=== PATIENT | male | born 1950 | race Caucasian/White ===

== ENCOUNTER 2017-04-28 10:37 | Emergency (ER) | payer OTHER ==
[~2017-04-28] VITALS: Ht 180.3 cm; Wt 129.5 kg
[~2017-04-28 10:37] MED LIST: LOSARTAN-HCTZ1 EACH PO
[2017-04-28 13:02] LABS: HEMATOCRIT 36.9 % (38.0-50.0); MCHC 33.6 G/DL (30.0-36.0); MCV 92.3 FL (86-99); PLATELET COUNT 178 K/uL (156-360); RBC DIS.WIDTH-CV 13.2 % (11.8-14.6); RBC DIS.WIDTH-SD 45.1 % (39-53); WHITE BLOOD COUNT 6.8 K/uL (4.1-10.2)
[2017-04-28 13:04] LABS: HEMOGLOBIN 12.4 G/DL (12.5-16.6)
[2017-04-28 13:08] LABS: CHLORIDE 100 mEq/L (99-109); POTASSIUM 4.3 mEq/L (3.7-5.4); SODIUM 135 mEq/L (136-147)
[2017-04-28 13:09] LABS: GLUCOSE 98 mg/dL (70-99)
[2017-04-28 13:13] LABS: CREATININE 1.5 mg/dL (0.6-1.3); GFR ESTIMATE (CALCULATED) 50 mL/min/ (58.99-99999)
[2017-04-28 13:14] LABS: UREA NITROGEN (BUN) 45 mg/dL (9-23)
[2017-04-28] MEDS ORDERED: ZOFRAN4 MG PO (14:02)
[2017-04-28 15:43] VITALS: BP 109/71
== END 2017-04-28 15:45 | disposition home or self-care (01) ==
LOC: EME 10:37
PROVIDERS: Emergency Medicine
DX: M25.561 Pain in right knee (principal); R11.2 Nausea with vomiting, unspecified; N28.9 Disorder of kidney and ureter, unspecified; E86.0 Dehydration; I10 Essential (primary) hypertension; Z98.890 Other specified postprocedural states; Z96.652 Presence of left artificial knee joint; Z79.01 Long term (current) use of anticoagulants
CPT/HCPCS: 80048; 83605; 85027; 87040; 93971; 99281; 99285; J2405; J7030

== ENCOUNTER 2017-09-12 13:47 | Day surgery (SDC) | payer OTHER ==
[~2017-09-12] VITALS: Ht 177.8 cm; Wt 127.0 kg
[~2017-09-12 13:47] MED LIST changes: +HYZAAR 100-11 TABLET PO; +ROPINIROLE HCL0.5 MG PO; +TYLENOL EXTRA500 MG PO; +ZOFRAN4 MG PO
== END 2017-09-12 15:00 | disposition home or self-care (01) ==
LOC: PAIN 13:47 → SDC 14:15 → PAIN 14:15
PROC: B01B0ZZ Fluoroscopy of Spinal Cord using High Osmolar Contrast (ICD-10-PCS; principal; 2017-09-12)
PROC: 3E0S33Z Introduction of Anti-inflammatory into Epidural Space, Percutaneous Approach (ICD-10-PCS; principal; 2017-09-12)
DX: M54.16 Radiculopathy, lumbar region (principal); M51.26 Other intervertebral disc displacement, lumbar region; M51.16 Intervertebral disc disorders with radiculopathy, lumbar region; E66.01 Morbid (severe) obesity due to excess calories; Z68.41 Body mass index [BMI] 40.0-44.9, adult; M41.80 Other forms of scoliosis, site unspecified; M47.816 Spondylosis without myelopathy or radiculopathy, lumbar region; I10 Essential (primary) hypertension; G89.29 Other chronic pain
CPT/HCPCS: J1100; J2250

== ENCOUNTER 2017-10-11 10:20 | Day surgery (SDC) | payer OTHER ==
[~2017-10-11] VITALS: Ht 177.8 cm; Wt 127.0 kg
== END 2017-10-11 11:30 | disposition home or self-care (01) ==
LOC: PAIN 10:20 → SDC 10:45 → PAIN 10:45
DX: M51.16 Intervertebral disc disorders with radiculopathy, lumbar region (principal); M47.26 Other spondylosis with radiculopathy, lumbar region; I10 Essential (primary) hypertension; E66.01 Morbid (severe) obesity due to excess calories; Z68.41 Body mass index [BMI] 40.0-44.9, adult
CPT/HCPCS: J1100; J2250

== ENCOUNTER 2017-11-14 13:25 | Day surgery (SDC) | payer OTHER ==
[~2017-11-14] VITALS: Ht 177.8 cm; Wt 127.0 kg
== END 2017-11-14 14:37 | disposition home or self-care (01) ==
LOC: PAIN 13:25 → SDC 15:00
DX: M47.816 Spondylosis without myelopathy or radiculopathy, lumbar region (principal); M48.062 Spinal stenosis, lumbar region with neurogenic claudication; M99.83 Other biomechanical lesions of lumbar region; M51.26 Other intervertebral disc displacement, lumbar region; G89.29 Other chronic pain; E66.01 Morbid (severe) obesity due to excess calories; Z68.42 Body mass index [BMI] 45.0-49.9, adult; I10 Essential (primary) hypertension
CPT/HCPCS: J1030; S0020

== ENCOUNTER → 2017-11-14 | Outpatient (CLI) | payer OTHER | END | disposition home or self-care (01) | LOC: CDC 14:49 | DX: Z01.810 Encounter for preprocedural cardiovascular examination (principal); N50.0 Atrophy of testis; N50.812 Left testicular pain; N49.2 Inflammatory disorders of scrotum; N50.3 Cyst of epididymis; J98.4 Other disorders of lung; R94.31 Abnormal electrocardiogram [ECG] [EKG] | CPT/HCPCS: 93000 ==

== ENCOUNTER 2017-11-21 13:04 | Day surgery (SDC) | payer OTHER ==
[~2017-11-21] VITALS: Ht 179.1 cm; Wt 126.1 kg
== END 2017-11-21 14:27 | disposition home or self-care (01) ==
LOC: PAIN 13:04 → SDC 13:45 → PAIN 14:27
PROC: 3E0T33Z Introduction of Anti-inflammatory into Peripheral Nerves and Plexi, Percutaneous Approach (ICD-10-PCS; principal; 2017-11-21)
PROC: 3E0T3BZ Introduction of Anesthetic Agent into Peripheral Nerves and Plexi, Percutaneous Approach (ICD-10-PCS; principal; 2017-11-21)
PROC: BR161ZZ Fluoroscopy of Lumbar Facet Joint(s) using Low Osmolar Contrast (ICD-10-PCS; principal; 2017-11-21)
DX: M47.816 Spondylosis without myelopathy or radiculopathy, lumbar region (principal); E66.01 Morbid (severe) obesity due to excess calories; Z68.42 Body mass index [BMI] 45.0-49.9, adult; Z96.653 Presence of artificial knee joint, bilateral
CPT/HCPCS: J1030; S0020